=== PATIENT | female | born 1980 | race Caucasian/White ===

== ENCOUNTER 2016-08-12 16:17 | Inpatient (IN) | payer OTHER ==
[~2016-08-12] VITALS: Ht 152.4 cm; Wt 83.6 kg
[~2016-08-12 16:17] MED LIST: CARBOPROST 250 MCG INJ ONE; LABE200T3 PO; PNV1TABL50 PO
[2016-08-12 16:53] VITALS: Ht 152.4 cm; Wt 83.6 kg
[2016-08-12 16:55] VITALS: BP 191/86; RESP 20
[2016-08-12] MEDS ORDERED: LACTATED RINGER'S 1,000 ML IV SCH (16:59)
[2016-08-12] MEDS ORDERED: BUTORPHANOL 2 MG INJ IV PRN (17:00)
[2016-08-12] MEDS ORDERED: LIDOCAINE 1% (MPF) 30 ML INJ INJ PRN (17:00)
[2016-08-12] MEDS ORDERED: IBUPROFEN 600 MG TAB PO PRN (17:00)
[2016-08-12] MEDS ORDERED: METHYLERGONOVINE 0.2 MG INJ IM PRN (17:00)
[2016-08-12] MEDS ORDERED: ACETAMINOPHEN/CODEINE #3 TAB PO PRN (17:00)
[2016-08-12] MEDS ORDERED: OXYTOCIN 30 UNITS/LR 500 ML IV PRN (17:00)
[2016-08-12] MEDS ORDERED: MISOPROSTOL 200 MCG TAB PR PRN (17:00)
[2016-08-12] MEDS ORDERED: OXYTOCIN 30 UNITS/LR 500 ML IV SCH ×2 (17:00)
[2016-08-12] MEDS ORDERED: CARBOPROST 250 MCG INJ IM PRN (17:00)
[2016-08-12] MEDS: LACTATED RINGER'S 1,000 ML IV SCH (17:42)
[2016-08-12] MEDS ORDERED: LACTATED RINGER'S 1,000 ML IV PRN (18:00)
[2016-08-12 18:11] LABS: BASOPHILS % 0.5 % (0.0-2.0); EOSINOPHILS % 0.1 % (0.0-7.0); HEMATOCRIT 32.2 % (37.0-47.0); HEMOGLOBIN 10.8 g/dl (12.0-16.0); LYMPHOCYTES # 1.6 10^3/ul (0.8-2.9); LYMPHOCYTES % 21.6 % (15.0-51.0); MEAN CORPUSCULAR HEMOGLOBIN 26.4 pg (29.0-33.0); MEAN CORPUSCULAR HGB CONC 33.7 g/dl (32.0-37.0); MEAN CORPUSCULAR VOLUME 78.4 fl (82.0-101.0); MEAN PLATELET VOLUME 10.7 fl (7.4-10.4); MONOCYTE # 0.4 10^3/ul (0.3-0.9); MONOCYTES % 5.3 % (0.0-11.0); NEUTROPHIL # 5.3 10^3/ul (1.6-7.5); NEUTROPHILS % 72.5 % (39.0-77.0); PLATELET COUNT 189 10^3/UL (140-440); RED CELL DISTRIBUTION WIDTH 13.5 % (11.5-14.5); UNCORRECTED WBC 7.3 10^3/ul (4.8-10.8); WHITE BLOOD COUNT 7.3 10^3/ul (4.8-10.8)
[2016-08-12 18:14] LABS: CONDITION 1; LH ANALYZER COMMENTS 1
[2016-08-12 18:16] LABS: ALBUMIN 3.6 g/dl (3.3-4.9); CHLORIDE 106 mmol/L (97-110); SODIUM 140 mmol/L (135-144)
[2016-08-12 18:18] LABS: INR 0.9; PROTIME 12.1 Sec (12.2-14.2); PT RATIO 0.9
[2016-08-12 18:19] LABS: ALANINE AMINOTRANSFERASE 17 IU/L (13-69); ALBUMIN/GLOBULIN RATIO 0.94; ALKALINE PHOSPHATASE 167 IU/L (42-121); ANION GAP 15 (8-16); ASPARTATE AMINO TRANSFERASE 15 IU/L (15-46); BILIRUBIN,INDIRECT 0.3 mg/dl (0-1.1); BILIRUBIN,TOTAL 0.3 mg/dl (0.2-1.3); BLOOD UREA NITROGEN 9 mg/dl (7-20); CALCIUM 9.5 mg/dl (8.4-10.2); CARBON DIOXIDE 23 mmol/L (21-31); CREATININE 0.65 mg/dl (0.44-1.00); GLUCOSE 100 mg/dl (70-220); TOTAL PROTEIN 7.4 g/dl (6.1-8.1)
--- NOTE | 2016-08-12 18:32 | RADRPT ---
PROCEDURE: US OB. CLINICAL INDICATION: Positive test. Uncertain size and dates. TECHNIQUE: Multiple sonographic images of the uterus were obtained. The images were revi ewed on a PACS workstation. COMPARISON: No prior studies are available for comparison. FINDINGS: There is a single live intrauterine gestation. heart rate is 157 beats per minute. Measurements were made in order to determine age. The results are as follows: BPD = 9.09 cm. HC = 32.27 cm. AC = 33.76 cm. FL = 7.09 cm. Estimated weight is 3123 +/- 468 grams. LMP growth percentile is 34 %. Menstrual age by ultrasound dates is 36 weeks 6 days. The estimated date of delivery is 09/03/2016. Position is cephalic and placenta is anterior right grade II. There is no evidence for an abruption or placenta previa. IMPRESSION: 1. Single live intrauterine gestation of 36 weeks 6 days menstrual age by ultrasound dates. 2. The estimated date of delivery is 09/03/2016. RPTAT: QQ .Modesto Gill MD, Date Time Electronically viewed and signed by .Modesto Gill MD, on 08/12/2016 18:32 .R/
[2016-08-12 18:50] LABS: ADD UMIC YES; URINE BILIRUBIN (Dip) NEGATIVE (NEGATIVE); URINE BLOOD (Dip) TRACE (NEGATIVE); URINE COLOR LT. YELLOW (YELLOW); URINE GLUCOSE (Dip) NEGATIVE (NEGATIVE); URINE KETONES (Dip) NEGATIVE (NEGATIVE); URINE LEUKOCYTE ESTERASE (Dip) TRACE (NEGATIVE); URINE NITRITE (Dip) NEGATIVE (NEGATIVE); URINE TOTAL PROTEIN (Dip) NEGATIVE (NEGATIVE); URINE UROBILINOGEN (Dip) 1.0 E.U./dL (0.1-1.0)
[2016-08-12 19:20] LABS: BACTERIA,URINE RARE; SQUAMOUS EPITHELIAL CELL,UR FEW; URINE RBCS 0-2 /HPF (0)
[2016-08-12] MEDS ORDERED: MAGNESIUM SULFATE 4 GM/100 ML 100 ML IVPB ONE (20:00)
[2016-08-12] MEDS ORDERED: MAGNESIUM SULFATE 20 GM/500 ML 500 ML IV SCH (20:00)
[2016-08-12] MEDS ORDERED: DINOPROSTONE 10 MG VAG SUPP VAG ONE (20:30)
[2016-08-12] MEDS: LABETALOL HCL 20MG INJ IV PRN (21:13)
[2016-08-12] MEDS: MAGNESIUM SULFATE 20 GM/500 ML 500 ML IV SCH (21:32)
[2016-08-12] MEDS: LABETALOL 200 MG TAB PO SCH (22:03)
[2016-08-13] VITALS (12 sets, daily range): BP systolic 137–173; BP diastolic 65–77; PULSE 47–168; RESP 18–20
[2016-08-13] MEDS: LABETALOL HCL 20MG INJ IV PRN ×4 (00:09→04:17)
[2016-08-13] MEDS: LACTATED RINGER'S 1,000 ML IV SCH ×2 (01:28→09:00)
[2016-08-13] MEDS ORDERED: FENTAnyl 2MCG/ML-ROPIV 0.2% 100 ML ONE (05:09)
[2016-08-13] MEDS ORDERED: FENTAnyl 2MCG/ML-ROPIV 0.2% 100 ML BAG EPI SCH (05:30)
[2016-08-13] MEDS ORDERED: NALOXONE (0.4 MG/ML) INJ IV PRN ×2 (05:30→12:00)
[2016-08-13] MEDS: LABETALOL 200 MG TAB PO SCH (06:00)
[2016-08-13] MEDS: MAGNESIUM SULFATE 20 GM/500 ML 500 ML IV SCH ×2 (07:45→22:43)
[2016-08-13] MEDS ORDERED: CEFAZOLIN 2 GM/50 ML (PMX) 50 ML IVPB ONE (09:28)
[2016-08-13] MEDS ORDERED: ONDANSETRON 4 MG INJ IV STA (09:29)
[2016-08-13] MEDS ORDERED: CITRIC ACID/NA CITRATE 30 ML CUP ONE (09:30)
[2016-08-13] MEDS ORDERED: CEFAZOLIN 2 GM/50 ML (PMX) 50 ML IV SCH (09:30)
[2016-08-13] MEDS ORDERED: CITRIC ACID/NA CITRATE 30 ML CUP PO ONE (09:30)
[2016-08-13] MEDS ORDERED: ONDANSETRON 4 MG INJ ONE (09:31)
[2016-08-13] MEDS ORDERED: morphine SULFATE/PF (10 MG/10 ML) INJ ONE (10:56)
[2016-08-13] MEDS ORDERED: OXYTOCIN 10 UNIT INJ ONE (10:56)
[2016-08-13] MEDS ORDERED: METOCLOPRAMIDE 10 MG INJ ONE (10:56)
[2016-08-13] MEDS ORDERED: FENTAnyl 50 MCG/ML VIAL ONE (10:56)
[2016-08-13] MEDS ORDERED: PHENYLephrine (100 MCG/ML) 5ML SYG ONE (10:56)
[2016-08-13] MEDS ORDERED: EPHEDrine SULFATE 50 MG/5 ML SYG IV PRN (12:00)
[2016-08-13] MEDS ORDERED: ONDANSETRON 4 MG INJ IV PRN ×2 (12:00)
[2016-08-13] MEDS ORDERED: MIDAZOLAM 1 MG/ML 2 ML INJ IV PRN (12:00)
[2016-08-13] MEDS ORDERED: LABETALOL HCL 20MG INJ IV PRN (12:00)
[2016-08-13] MEDS ORDERED: FENTAnyl 50 MCG/ML VIAL IV PRN ×3 (12:00)
[2016-08-13] MEDS ORDERED: hydrALAzine 20 MG INJ IV PRN (12:00)
[2016-08-13] MEDS ORDERED: MEPERIDINE 25 MG INJ IV PRN (12:00)
[2016-08-13] MEDS ORDERED: ZOLPIDEM 5 MG TAB PO PRN (12:00)
[2016-08-13] MEDS ORDERED: TRIMETHOBENZAMIDE 100 MG/ML VIAL IM PRN (12:00)
[2016-08-13] MEDS ORDERED: morphine 2 MG INJ IV PRN ×2 (12:00)
[2016-08-13] MEDS ORDERED: DIPHENHYDRAMINE 50 MG INJ IV PRN ×2 (12:00)
[2016-08-13] MEDS ORDERED: HYDROmorphONE (0.2 MG/ML) 10ML SYG IV PRN ×3 (12:00)
--- NOTE | 2016-08-13 14:19 | HP ---
Date/Time of Note Date/Time of Note DATE: 08/13/16 TIME: 14:01 OB - History Hx of Present Free Text/Dictation 38 weeks 2 days female 36 years old 4 para 3 admitted to the hospital labor and delivery room for induction of labor due to - induced patient underwent a Cervidil induction responded well and her cervix dilated to complete 100% effacement vertex at -2 station during the second stage of labor in spite of of several hours of pushing presenting part did not descend any further, while baby having variable decelerations with contraction, returning to the baseline, after several hours of pushing patient declined further trial of labor in second stage of labor requested delivery , even though this was explained to the patient with some more pushing vaginal delivery can be achieved patient refused and requested therefore she is being prepared for the above surgery the complications of this procedure described to the patient including but not limited to bowel and bladder injury, possibility of wound infection , hematoma she fully understood the complications but still would like to proceed with the operation Estimated Due Date: Aug 24, 2016 : 4 Para: 3 Care: Limited Care Ultrasounds: Normal mid trimester US Obstetrical Complications: None Medical Complications: None Past Family/Social History * Past Medical, Surgical, Family and Obstetric Histories reviewed from chart. Rubella: immune RPR/VDRL: Negative GBS Status: Negative HBsAG: Negative OB Admission Exam Vital Signs Vital Signs Vital Signs Date Time Temp Pulse Resp B/P Pulse Ox O2 Delivery O2 Flow Rate FiO2 08/12/16 16:55 98.0 20 191/86 98 Room Air Physical Exam HEENT: WNL Heart: Rhythm Normal Lungs: Clear, Equal Abdomen: WNL Extremities: Normal Cervical Dilatation: None Effacement: 0% Membranes: Intact Heart Rate: 120's Accelerations: Accelerations Present Decelerations: Variable Decelerations Varibility: Moderate Contractions on Admission: None Intensity: Mild Last 72 hours Lab Results CBC & BMP 08/12/16 17:13 Liver Function Test 08/12/16 17:13 Alanine Aminotransferase (ALT/SGPT) 17 Albumin 3.6 Alkaline Phosphatase 167 H Aspartate Amino Transf (AST/SGOT) 15 Direct Bilirubin 0.00 Total Protein 7.4 Magnesium Level Test 08/13/16 07:30 Magnesium Level 5.8 *H CRISTINA ALFARO MD Aug 13, 2016 14:16
--- NOTE | 2016-08-13 14:50 | DELSUM ---
Delivery Summary A-C Datetime Report Generated by CPN: 08/13/2016 14:50 DELIVERY PERSONNEL Senior Data Warehouse Architect: Tamara Lloyd Religious Healer: freddy MATERNAL INFORMATION Delivery Anesthesia: Spinal Medications in Delivery: see anethesia records Estimated Blood Loss (ml): 650 Placenta Cultured: Yes Maternal Complications: Other Other Maternal Complications: severe high bp on labetalol and magnesium sulfate LABOR SUMMARY EDC: 08/24/2016 00:00 No. Babies in Womb: 1 Attempted: No Labor Anesthesia: Epidural LABOR INFORMATION Reason for Induction: Gest. HTN/PreEclam/Eclamp Cervical Ripening Agents: Cervidil Oxytocin: N/A Group B Beta Strep: Negative Antibiotics # of Doses: 1 Antibiotics Time of Last Dose: 1048 Steroids Given: None Reason Steroids Not Administered: Not Applicable MEMBRANES Membranes Rupture Method: Spontaneous Rupture of Membranes: 08/13/2016 06:18 Length of Rupture (hr): 5.05 Amniotic Fluid Color: Clear Amniotic Fluid Amount: Small Amniotic Fluid Odor: Normal STAGES OF LABOR Stage 3 hr: 0 Stage 3 min: 1 CSECTION DELIVERY Primary Indication: Failure of Descent Other Primary Indication: PT. declined to try out of labor Secondary Indication: Severe high bp Other Secondary Indication: multiple varible decels CSection Urgency: Emergency CSection Incidence: Primary Labor: Labor Elective: Nonelective CSection Incision: Lower Uterine Transverse BABY A INFORMATION Infant Delivery Date/Time: 08/13/2016 11:21 Method of Delivery: Born in Route : No : N/A Forceps: N/A Vacuum Extraction: N/A Shoulder Dystocia : No SHOULDER DYSTOCIA BABY A Delivery Date/Time: 08/13/2016 11:21 PRESENTATION/POSITION BABY A Presentation: Cephalic Cephalic Presentation: Vertex Vertex Position: Left Occipital Transverse Breech Presentation: N/A PLACENTA INFORMATION BABY A Placenta Delivery Time : 08/13/2016 11:22 Placenta Method of Delivery: Manual Removal Placenta Status: Delivered SCORES BABY A Heart Rate 1 min: >100 bpm Resp Effort 1 min: Good Cry Reflex Irritability 1 min: Cough/Sneeze/Pulls Away Muscle Tone 1 min: Active Motion Color 1 min: Blue/Pale Resuscitation Effort 1 min: Tactile Stimulation; Oxygen SCORE 1 MIN: 8 Heart Rate 5 min: >100 bpm Resp Effort 5 min: Good Cry Reflex Irritability 5 min: Cough/Sneeze/Pulls Away Muscle Tone 5 min: Active Motion Color 5 min: Blue/Pale SCORE 5 MIN: 8 INFANT INFORMATION BABY A Gestational Age at Delivery: 38.3 Gestational Status: Early Term- 37- 38.6 Weeks Outcome : Liveborn Infant Condition : Stable Sex: Female IDENTIFICATION/MEDS BABY A ID Band Number: [id number] ID Band Location: Right Leg; Left Arm Sensor Applied: Yes Sensor Number: [id number] WEIGHT/LENGTH BABY A Infant Birthweight (gm): 2990 Infant Weight (lb): 6 Weight (oz): 9 Length (in): 19.50 Length (cm): 49.53 CORD INFORMATION BABY A No. Cord Vessels: 3 Nuchal Cord : Around Neck x1, Loose Cord Blood Taken: Yes Infant Suction: Mouth; Nose ASSESSMENT BABY A Complications: Multiple Variable Decels Physical Findings at Delivery: Within Normal Limits Physical Findings- Other: void x1, stool x1 Respirations: Appears Normal Service Center Supervisor/ALS Called : No Infant Care By: rt/zac veras
--- NOTE | 2016-08-13 15:56 | OPR ---
DATE OF OPERATION: 08/13/2016 PREOPERATIVE DIAGNOSES: 1. Intrauterine at 38 weeks and 2 days. complicated with PIH (-induced hypertension. 2. Nonreassuring heart tracing, category 3. 3. Failure to descend at second stage of labor. 4. Declined further trial of labor at the second stage. POSTOPERATIVE DIAGNOSES: 1. Intrauterine at 38 weeks and 2 days. complicated with PIH (-induced hypertension. 2. Nonreassuring heart tracing, category 3. 3. Failure to descend at second stage of labor. 4. Declined further trial of labor at the second stage. OPERATION PERFORMED: Primary transverse low cervical section. SURGEON: Cristina Santos MD DEPUTY CLERK OF SUPERIOR COURT: Az Win MD ANESTHESIA: Spinal. ANESTHESIOLOGIST: Lior Garnados MD FINDINGS: Live baby girl, 8 and 8. Baby weighed 6 pounds 9 ounces. DETAILS OF THE PROCEDURE: Under satisfactory spinal anesthesia, the patient was prepped and draped and placed in supine position, tilted to the left. Pfannenstiel incision was made, carried through the subcutaneous tissue. Bleeders brought under control with electrocautery. Fascia incised to the length of incision. Rectus muscle divided in midline. Peritoneum exposed, entered through a transverse incision. Exploration of abdomen revealed a gravid uterus at term, normal appearing tubes and ovaries, and evidence of long labor. Bladder flap was developed. Transverse incision was made in the upper part of the lower segment of the uterus. Amniotic sac ruptured, scant amount of clear amniotic fluid noted. Live baby girl was delivered from engaged vertex with occiput posterior. Shoulder delivered without any difficulty and the rest of the body as well. Cord clamped after pulsation stopped ,nasal oropharyngeal suction was done on the baby, she was handed to the team for immediate attention. The patient received 20 units of Pitocin. Placenta delivered manually intact. Uterine cavity cleaned with wet sponge and drainage established. Uterus closed in 2 layers using Monocryl #1 in continuous fashion. Peritoneal cavity was irrigated with warm saline. Sponge, needle and instruments reported to be correct. Abdominal peritoneum closed with 2-0 chromic catgut continuously. Rectus muscle approximated with few interrupted 2-0 chromic catgut. Fascia closed with #1 PDS in a continuous fashion. Subcutaneous tissue approximated with 2-0 chromic catgut. The skin closed with fausto. Estimated blood loss 600 to 700 mL. Urine bag contained 200 mL of clear urine. The patient tolerated procedure well, transferred to recovery room in a good condition. Dictated By: CRISTINA MORALES/ROGER Conf#: [id number] DID#: [id number] MTDD
[2016-08-13] MEDS ORDERED: CEFAZOLIN 1 GM/50 ML (PMX) 50 ML IVPB SCH (16:00)
[2016-08-13] MEDS ORDERED: CARBOPROST 250 MCG INJ IM PRN (16:00)
[2016-08-13] MEDS ORDERED: LANOLIN 7 GM TUBE TOP PRN (16:00)
[2016-08-13] MEDS ORDERED: METHYLERGONOVINE 0.2 MG INJ IM PRN (16:00)
[2016-08-13] MEDS ORDERED: OXYTOCIN 30 UNITS/LR 500 ML IV PRN (16:00)
[2016-08-13] MEDS ORDERED: ACETAMINOPHEN/CODEINE #3 TAB PO PRN ×2 (16:00)
[2016-08-13] MEDS ORDERED: OXYCODONE/ACETAMINOPHEN (5/325) TAB PO PRN (16:00)
[2016-08-13] MEDS ORDERED: MISOPROSTOL 200 MCG TAB PR PRN (16:00)
[2016-08-13] MEDS: OXYTOCIN 30 UNITS/LR 500 ML IV SCH ×2 (16:14→20:41)
[2016-08-13] MEDS: KETOROLAC 30 MG INJ IV PRN ×2 (17:04→23:15)
[2016-08-13] MEDS ORDERED: IBUPROFEN 600 MG TAB PO SCH (18:00)
--- NOTE | 2016-08-13 20:46 | QN ---
Documentation Comment I was called by RN from post unit due to elevated blood pressure noted in the patient in the range of 150-170/80-90 Went to the bed side. Patient denied any headache or blurred vision. Reported epigastric pain about 5/10 ; Denies any RUQ pain BPs' reviewed and are in 150-170/90s GA: A&O, NAD Abdomen:Soft, appropriate tenderness over the Cesrean section incision noted Extremities: no calf tenderness, SCD's are on. + 1symetric Bilateral edema Assessment; S/p section for FTP with CHTN and superimposed preclampsia Magnesium stopped after delivery. Now elevated blood pressure in the severe range with epigastric pain. Consider restart the magnesium and continue until 24 hours post delivery Hydralazine 5 mg IV push to be given now, recheck after 20 mi if < 160/90 continue on Labetalol TID 100 mg as below PIH labs to be checked now Start on Labetaolol 100 mg PO TID Strict I&O. Routine post care CORETTA FOY MD Aug 13, 2016 20:46
[2016-08-13] MEDS ORDERED: ACETAMINOPHEN 500 MG TAB PO PRN (21:00)
[2016-08-13] MEDS ORDERED: MAGNESIUM SULFATE 2 GM/50 ML 50 ML IVPB SCH (21:00)
[2016-08-13] MEDS ORDERED: hydrALAzine 20 MG INJ IV ONE (21:00)
[2016-08-13] MEDS ORDERED: MAGNESIUM SULFATE 4 GM/100 ML 100 ML IVPB ONE (21:15)
[2016-08-13] MEDS: LABETALOL 100 MG TAB PO SCH (21:43)
[2016-08-13 21:47] LABS: ALBUMIN 2.4 g/dl (3.3-4.9)
[2016-08-13 21:48] LABS: POTASSIUM 4.2 mmol/L (3.5-5.1)
[2016-08-13 21:50] LABS: BILIRUBIN,INDIRECT 0.4 mg/dl (0-1.1); BILIRUBIN,TOTAL 0.4 mg/dl (0.2-1.3); CREATININE 0.93 mg/dl (0.44-1.00); PHOSPHORUS 5.2 mg/dl (2.5-4.9); TOTAL PROTEIN 5.2 g/dl (6.1-8.1)
[2016-08-13 21:51] LABS: CALCIUM 7.5 mg/dl (8.4-10.2)
[2016-08-13 22:32] LABS: FIBRIN SPLIT PRODUCT <10 ug/ml (<10)
[2016-08-14] VITALS (22 sets, daily range): BP systolic 104–162; BP diastolic 57–72; PULSE 58–75; RESP 16–19
[2016-08-14] MEDS: OXYTOCIN 30 UNITS/LR 500 ML IV SCH (02:00)
[2016-08-14] MEDS: KETOROLAC 30 MG INJ IV PRN (06:06)
[2016-08-14 07:26] LABS: HEMATOCRIT 20.7 % (37.0-47.0); HEMOGLOBIN 7.2 g/dl (12.0-16.0); LYMPHOCYTES % 8.9 % (15.0-51.0); MEAN CORPUSCULAR HGB CONC 34.6 g/dl (32.0-37.0); MEAN CORPUSCULAR VOLUME 78.1 fl (82.0-101.0); MEAN PLATELET VOLUME 9.8 fl (7.4-10.4); MONOCYTE # 0.5 10^3/ul (0.3-0.9); MONOCYTES % 4.6 % (0.0-11.0); NEUTROPHIL # 9.6 10^3/ul (1.6-7.5); NEUTROPHILS % 86.5 % (39.0-77.0); PLATELET COUNT 158 10^3/UL (140-440); RED BLOOD COUNT 2.65 10^6/ul (4.20-5.40); RED CELL DISTRIBUTION WIDTH 13.4 % (11.5-14.5); UNCORRECTED WBC 11.1 10^3/ul (4.8-10.8); WHITE BLOOD COUNT 11.1 10^3/ul (4.8-10.8)
[2016-08-14 07:37] LABS: CONDITION 1; LH ANALYZER COMMENTS 1
[2016-08-14] MEDS: SENNA/DOCUSATE NA (8.6MG/50MG) TAB PO SCH ×2 (08:44→20:33)
[2016-08-14] MEDS: LABETALOL 100 MG TAB PO SCH ×3 (08:45→20:34)
[2016-08-14] MEDS: MAGNESIUM SULFATE 20 GM/500 ML 500 ML IV SCH (08:49)
--- NOTE | 2016-08-14 14:02 | PN ---
Date/Time of Note Date/Time of Note DATE: 08/14/16 TIME: 14:00 OB Subjective Subjective Subjective Vital sign a stable blood pressures running within normal on 130s over 80s no headache no epigastric pain no blurry vision magnesium sulfate discontinued patient encouraged ambulation her hemoglobin is 7.2 if the static or lightheaded when active may require transfusion Laboratory Tests Test 08/13/16 21:22 08/14/16 06:15 08/14/16 11:28 Alanine Aminotransferase (ALT/SGPT) 25IU/L Albumin 2.4g/dl Alkaline Phosphatase 117IU/L Anion Gap 12 Aspartate Amino Transf (AST/SGOT) 27IU/L Blood Urea Nitrogen 9mg/dl Calcium Level 7.5mg/dl Carbon Dioxide Level 25mmol/L Chloride Level 99mmol/L Creatinine 0.93mg/dl Direct Bilirubin 0.00mg/dl Fibrinogen 310.0mg/dl Glucose Level 108mg/dl Indirect Bilirubin 0.4mg/dl Lactate Dehydrogenase 631IU/L Phosphorus Level 5.2mg/dl Plasma Fibrin Degradation Products <10ug/ml Potassium Level 4.2mmol/L Sodium Level 132mmol/L Total Bilirubin 0.4mg/dl Total Protein 5.2g/dl Basophils # 0.010^3/ul Basophils % 0.0% Blood Morphology Comment Eosinophils # 0.010^3/ul Eosinophils % 0.0% Hematocrit 20.7% Hemoglobin 7.2g/dl Lymphocytes # 1.010^3/ul Lymphocytes % 8.9% Magnesium Level 7.5mg/dl 7.1mg/dl Mean Corpuscular Hemoglobin 27.0pg Mean Corpuscular Hemoglobin Concent 34.6g/dl Mean Corpuscular Volume 78.1fl Mean Platelet Volume 9.8fl Monocytes # 0.510^3/ul Monocytes % 4.6% Neutrophils # 9.610^3/ul Neutrophils % 86.5% Nucleated Red Blood Cells # 0.010^3/ul Nucleated Red Blood Cells % 0.0/100WBC Platelet Count 81486^3/UL Red Blood Count 2.6510^6/ul Red Cell Distribution Width 13.4% White Blood Count 11.110^3/ul Current Medications Medications (Trade) Dose Ordered Sig/Yana Route PRN Reason Start Time Stop Time Status Last Admin Dose Admin Lactated Ringer's (Lr) 1,000 ml @ 125 mls/hr Q8H IV 08/12/16 16:59 Cancel Butorphanol Tartrate (Stadol) 2 mg Q2H PRN IV PAIN 08/12/16 17:00 08/13/16 16:02 DC Lidocaine 30 ml 30 ml ONCE PRN INJ EPISIOTOMY/TEARING 08/12/16 17:00 08/13/16 16:02 DC Oxytocin/Lactated Ringer's 500 ml @ 125 mls/hr ONCE -MAY REPEAT X1 IV 08/12/16 17:00 08/13/16 16:02 DC 08/13/16 13:29 Oxytocin/Lactated Ringer's 500 ml @ 125 mls/hr ONCE IV 08/12/16 17:00 08/13/16 16:02 DC Ibuprofen (Motrin) 600 mg ONCE PRN PO Mild Pain (Pain Score 1-3) 08/12/16 17:00 08/12/16 18:29 DC Acetaminophen/ Codeine Phosphate 2 tab 2 tab ONCE PRN PO Moderate to Severe Pain (4-10) 08/12/16 17:00 08/13/16 16:02 DC Lactated Ringer's 1,000 ml @ 2,000 mls/hr Q30M PRN IV PRE-EPIDURAL BOLUS 08/12/16 18:00 08/13/16 16:02 DC Oxytocin/Lactated Ringer's 500 ml @ 0 mls/hr ONCE PRN IV For Hemorrhage Management 08/12/16 17:00 08/13/16 16:02 DC Methylergonovine Maleate (Methergine) 0.2 mg ONCE PRN IM VAGINAL BLEEDING 08/12/16 17:00 08/13/16 16:03 DC Carboprost Tromethamine (Hemabate) 250 mcg ONCE PRN IM VAGINAL BLEEDING 08/12/16 17:00 08/13/16 16:03 DC Misoprostol (Cytotec) 1,000 mcg ONCE PRN AR VAGINAL BLEEDING 08/12/16 17:00 08/13/16 16:03 DC Labetalol HCl 200 mg 200 mg Q8 PO 08/12/16 22:00 08/13/16 16:03 DC 08/12/16 22:03 Lactated Ringer's (Lr) 1,000 ml @ 125 mls/hr Q8H IV 08/12/16 17:00 08/13/16 16:03 DC 08/13/16 09:00 Labetalol HCl 20 mg 20 mg ONCE PRN IV ELEVATED BLOOD PRESSURE 08/12/16 18:00 08/13/16 16:02 DC 08/13/16 04:17 Magnesium Sulfate 100 ml @ 200 mls/hr ONCE ONCE IVPB 08/12/16 20:00 08/12/16 20:29 DC 08/12/16 20:36 Magnesium Sulfate (Magnesium Sulfate 20 Gm/500 ml) 500 ml @ 50 mls/hr Q10H IV 08/12/16 20:00 08/12/16 20:38 DC Dinoprostone 10 mg 10 mg ONCE ONCE VAG 08/12/16 20:30 08/12/16 20:31 DC 08/12/16 20:54 Magnesium Sulfate 500 ml @ 50 mls/hr Q10H IV 08/12/16 21:30 08/13/16 16:02 DC 08/13/16 07:45 Fentanyl/ Ropivacaine 100 ml @ ud STK-MED ONCE .ROUTE 08/13/16 05:09 08/13/16 05:10 DC Naloxone HCl (Narcan) 0.2 mg Q2M PRN IV FOR RESP RATE 8 OR LESS 08/13/16 05:30 08/13/16 16:02 DC Fentanyl/ Ropivacaine 100 ml 100 ml EPIDURAL (PCEA) EPI 08/13/16 05:30 08/13/16 16:02 DC Cefazolin Sodium/ Dextrose 50 ml @ 100 mls/hr ONCE IV 08/13/16 09:30 08/13/16 16:02 DC Cefazolin Sodium/ Dextrose (Ancef 2 Gm/50 ml (Pmx)) 50 ml @ ud STK-MED ONCE IVPB 08/13/16 09:28 08/13/16 09:29 DC Citric Acid/ Sodium Citrate (Bicitra) 30 ml ONCE ONCE PO 08/13/16 09:30 08/13/16 09:31 DC 08/13/16 09:36 Ondansetron HCl (Zofran Inj) 4 mg ONCE STAT IV 08/13/16 09:29 08/13/16 09:31 DC 08/13/16 09:36 Citric Acid/ Sodium Citrate (Bicitra) 30 ml STK-MED ONCE .ROUTE 08/13/16 09:30 08/13/16 09:31 DC Ondansetron HCl (Zofran Inj) 4 mg STK-MED ONCE .ROUTE 08/13/16 09:31 08/13/16 09:32 DC Fentanyl (Sublimaze) 100 mcg STK-MED ONCE .ROUTE 08/13/16 10:56 08/13/16 10:57 DC Morphine Sulfate (Duramorph) 10 mg STK-MED ONCE .ROUTE 08/13/16 10:56 08/13/16 10:57 DC Metoclopramide HCl (Reglan) 10 mg STK-MED ONCE .ROUTE 08/13/16 10:56 08/13/16 10:57 DC Oxytocin (Oxytocin) 10 units STK-MED ONCE .ROUTE 08/13/16 10:56 08/13/16 10:57 DC Phenylephrine HCl (Edward-Synephrine Inj Syg) 500 mcg STK-MED ONCE .ROUTE 08/13/16 10:56 08/13/16 10:57 DC Hydromorphone HCl (Dilaudid (Rec)) 0.2 mg PACU ORDER PRN IV MILD PAIN LEVEL 1-3 08/13/16 12:00 08/13/16 16:02 DC Hydromorphone HCl (Dilaudid (Rec)) 0.4 mg PACU ORDER PRN IV MODERATE PAIN LEVEL 4-6 08/13/16 12:00 08/13/16 16:02 DC Hydromorphone HCl (Dilaudid (Rec)) 0.6 mg PACU ORDER PRN IV SEVERE PAIN LEVEL 7-10 08/13/16 12:00 08/13/16 16:02 DC Fentanyl (Sublimaze) 25 mcg PACU ORDER PRN IV MILD PAIN LEVEL 1-3 08/13/16 12:00 08/13/16 16:02 DC Fentanyl (Sublimaze) 50 mcg PACU ODER PRN IV MODERATE PAIN LEVEL 4-6 08/13/16 12:00 08/13/16 16:02 DC Fentanyl (Sublimaze) 75 mcg PACU ORDER PRN IV SEVERE PAIN LEVEL 7-10 08/13/16 12:00 08/13/16 16:02 DC Ondansetron HCl (Zofran Inj) 4 mg PACU ORDER PRN IV NAUSEA AND/OR VOMITING 08/13/16 12:00 08/13/16 16:02 DC Trimethobenzamide HCl (Tigan) 200 mg PACU ORDER PRN IM NAUSEA AND/OR VOMITING 08/13/16 12:00 08/13/16 16:02 DC Labetalol HCl (Labetalol) 5 mg PACU ORDER PRN IV HIGH BLOOD PRESSURE 08/13/16 12:00 08/13/16 16:02 DC Hydralazine HCl (Apresoline) 5 mg PACU ORDER PRN IV HIGH BLOOD PRESSURE 08/13/16 12:00 08/13/16 16:02 DC Ephedrine Sulfate 5 mg PACU ORDER PRN IV MAP LESS THAN 60 08/13/16 12:00 08/13/16 16:03 DC Meperidine HCl (Demerol) 25 mg PACU ORDER PRN IV POST-OP RIGORS 08/13/16 12:00 08/13/16 16:03 DC Diphenhydramine HCl (Benadryl) 25 mg PACU ORDER PRN IV PRURITUS 08/13/16 12:00 08/13/16 16:03 DC Midazolam HCl (Versed) 0.5 mg PACU ORDER PRN IV ANXIETY 08/13/16 12:00 08/13/16 16:03 DC Naloxone HCl (Narcan) 0.1 mg Q2M PRN IV FOR RESP RATE 8 OR LESS 08/13/16 12:00 08/14/16 11:59 DC Ketorolac Tromethamine (Toradol) 30 mg Q6H PRN IV PAIN 08/13/16 12:00 08/14/16 11:59 DC 08/14/16 06:06 Morphine Sulfate (morphine) 2 mg Q3H PRN IV PAIN LEVEL 1-5 08/13/16 12:00 08/14/16 11:59 DC Morphine Sulfate (morphine) 4 mg Q3H PRN IV PAIN LEVEL 6-10 08/13/16 12:00 08/14/16 11:59 DC Diphenhydramine HCl (Benadryl) 25 mg Q6H PRN IV ITCHING 08/13/16 12:00 08/14/16 11:59 DC Ondansetron HCl (Zofran Inj) 4 mg Q6H PRN IV NAUSEA AND/OR VOMITING 08/13/16 12:00 08/14/16 11:59 DC Zolpidem Tartrate (Ambien) 5 mg HS MAY REPEAT X 1 PRN PO INSOMNIA 08/13/16 12:00 08/14/16 11:59 DC Miscellaneous Information (* Miscellaneous Pharmacy Order) Duramorph: 0.2 mg Spi... GIVEN XX 08/13/16 12:00 08/13/16 16:03 DC Acetaminophen/ Codeine Phosphate (Tylenol No.3) 1 tab Q4H PRN PO PAIN LEVEL 4-6 08/13/16 16:00 Acetaminophen/ Codeine Phosphate (Tylenol No.3) 2 tab Q4H PRN PO PAIN LEVEL 7-10 08/13/16 16:00 Oxycodone/ Acetaminophen (Percocet (5/ 325)) 1 tab Q4H PRN PO PAIN LEVEL 4-6 08/13/16 16:00 Oxycodone/ Acetaminophen (Percocet (5/ 325)) 2 tab Q4H PRN PO PAIN LEVEL 7-10 08/13/16 16:00 Ibuprofen (Motrin) 600 mg Q6 PO 08/13/16 18:00 08/13/16 20:53 DC Simethicone (Mylicon) 160 mg Q8H PRN PO DISTENSION/GAS/BLOATING 08/13/16 16:00 Senna/Docusate Sodium (Senokot-S) 1 tab BID PO 08/14/16 09:00 08/14/16 08:44 Lanolin (Jag-U-Nqwavn) 1 applic BEDSIDE MEDICATION PRN TOP BEDSIDE FOR HECTOR TO NIPPLES 08/13/16 16:00 Diphtheria/ Tetanus/Acell Pertussis 0.5 ml 0.5 ml ONCE ONCE IM* 08/16/16 09:00 08/16/16 09:01 Oxytocin/Lactated Ringer's 500 ml @ 0 mls/hr ONCE PRN IV For Hemorrhage Management 08/13/16 16:00 Methylergonovine Maleate (Methergine) 0.2 mg ONCE PRN IM VAGINAL BLEEDING 08/13/16 16:00 Carboprost Tromethamine (Hemabate) 250 mcg ONCE PRN IM VAGINAL BLEEDING 08/13/16 16:00 Misoprostol 1000 mcg 1,000 mcg ONCE PRN AR VAGINAL BLEEDING 08/13/16 16:00 Cefazolin Sodium 50 ml @ 100 mls/hr ONCE IVPB 1/25/17 16:00 08/13/16 16:29 DC 08/13/16 16:14 Oxytocin/Lactated Ringer's 500 ml @ 125 mls/hr Q4H IV 08/13/16 15:55 08/14/16 03:54 DC 08/14/16 02:00 Hydralazine HCl (Apresoline) 5 mg ONCE ONCE IV 08/13/16 21:00 08/13/16 21:01 DC 08/13/16 21:31 Labetalol HCl 100 mg 100 mg TID PO 08/13/16 21:00 08/14/16 12:48 Magnesium Sulfate 100 ml @ 200 mls/hr ONCE ONCE IVPB 08/13/16 21:15 08/13/16 21:44 DC 08/13/16 22:12 Magnesium Sulfate (Magnesium Sulfate 2 Gm/50 ml) 50 ml @ 25 mls/hr Q2H IVPB 08/13/16 21:00 08/13/16 21:15 DC Acetaminophen 500 mg 500 mg Q6H PRN PO PAIN AND OR ELEVATED TEMP 08/13/16 21:00 Magnesium Sulfate (Magnesium Sulfate 20 Gm/500 ml) 500 ml @ 50 mls/hr Q10H IV 08/13/16 21:45 08/14/16 08:49 CRISTINA ALFARO MD Aug 14, 2016 14:02
--- NOTE | 2016-08-14 14:03 | PN ---
Date/Time of Note Date/Time of Note DATE: 08/14/16 TIME: 14:02 OB Subjective Subjective Subjective Vital sign is stable abdomen soft incision dry bowel sound present lochia normal urine output satisfactory ambulation recommended. CRISTINA ALFARO MD Aug 14, 2016 14:03
[2016-08-14] MEDS: OXYCODONE/ACETAMINOPHEN (5/325) TAB PO PRN (17:25)
[2016-08-15] VITALS (7 sets, daily range): BP systolic 119–158; BP diastolic 59–77; PULSE 54–70; RESP 16–20
[2016-08-15 07:41] LABS: BASOPHILS % 0.3 % (0.0-2.0); EOSINOPHILS % 0.3 % (0.0-7.0); HEMATOCRIT 24.4 % (37.0-47.0); HEMOGLOBIN 8.3 g/dl (12.0-16.0); LYMPHOCYTES # 1.2 10^3/ul (0.8-2.9); LYMPHOCYTES % 11.8 % (15.0-51.0); MEAN CORPUSCULAR HEMOGLOBIN 27.9 pg (29.0-33.0); MEAN CORPUSCULAR HGB CONC 34.1 g/dl (32.0-37.0); MEAN PLATELET VOLUME 9.9 fl (7.4-10.4); MONOCYTE # 0.6 10^3/ul (0.3-0.9); MONOCYTES % 6.5 % (0.0-11.0); NEUTROPHILS % 81.1 % (39.0-77.0); PLATELET COUNT 180 10^3/UL (140-440); RED BLOOD COUNT 2.98 10^6/ul (4.20-5.40); RED CELL DISTRIBUTION WIDTH 14.9 % (11.5-14.5); UNCORRECTED WBC 9.9 10^3/ul (4.8-10.8); WHITE BLOOD COUNT 9.9 10^3/ul (4.8-10.8)
[2016-08-15 07:54] LABS: CONDITION 1; LH ANALYZER COMMENTS 1
[2016-08-15] MEDS: SENNA/DOCUSATE NA (8.6MG/50MG) TAB PO SCH ×2 (08:39→20:29)
[2016-08-15] MEDS: LABETALOL 100 MG TAB PO SCH ×3 (08:40→20:28)
[2016-08-15] MEDS: OXYCODONE/ACETAMINOPHEN (5/325) TAB PO PRN (12:38)
--- NOTE | 2016-08-15 13:38 | PN ---
Date/Time of Note Date/Time of Note DATE: 08/15/16 TIME: 13:37 OB Subjective Subjective Subjective Post day 1, Vital sign stable, afebrile abdomen soft uterus firm lochia normal incision dry abdomen mildly distended bowel sounds present patient passing gas ambulation encouraged Laboratory Tests Test 08/15/16 06:30 Basophils # 0.010^3/ul Basophils % 0.3% Blood Morphology Comment Eosinophils # 0.010^3/ul Eosinophils % 0.3% Hematocrit 24.4% Hemoglobin 8.3g/dl Lymphocytes # 1.210^3/ul Lymphocytes % 11.8% Mean Corpuscular Hemoglobin 27.9pg Mean Corpuscular Hemoglobin Concent 34.1g/dl Mean Corpuscular Volume 82.0fl Mean Platelet Volume 9.9fl Monocytes # 0.610^3/ul Monocytes % 6.5% Neutrophils # 8.010^3/ul Neutrophils % 81.1% Nucleated Red Blood Cells # 0.010^3/ul Nucleated Red Blood Cells % 0.0/100WBC Platelet Count 62423^3/UL Red Blood Count 2.9810^6/ul Red Cell Distribution Width 14.9% White Blood Count 9.910^3/ul Current Medications Medications (Trade) Dose Ordered Sig/Yana Route PRN Reason Start Time Stop Time Status Last Admin Dose Admin Lactated Ringer's (Lr) 1,000 ml @ 125 mls/hr Q8H IV 08/12/16 16:59 Cancel Butorphanol Tartrate (Stadol) 2 mg Q2H PRN IV PAIN 08/12/16 17:00 08/13/16 16:02 DC Lidocaine 30 ml 30 ml ONCE PRN INJ EPISIOTOMY/TEARING 08/12/16 17:00 08/13/16 16:02 DC Oxytocin/Lactated Ringer's 500 ml @ 125 mls/hr ONCE -MAY REPEAT X1 IV 08/12/16 17:00 08/13/16 16:02 DC 08/13/16 13:29 Oxytocin/Lactated Ringer's 500 ml @ 125 mls/hr ONCE IV 08/12/16 17:00 08/13/16 16:02 DC Ibuprofen (Motrin) 600 mg ONCE PRN PO Mild Pain (Pain Score 1-3) 08/12/16 17:00 08/12/16 18:29 DC Acetaminophen/ Codeine Phosphate 2 tab 2 tab ONCE PRN PO Moderate to Severe Pain (4-10) 08/12/16 17:00 08/13/16 16:02 DC Lactated Ringer's 1,000 ml @ 2,000 mls/hr Q30M PRN IV PRE-EPIDURAL BOLUS 08/12/16 18:00 08/13/16 16:02 DC Oxytocin/Lactated Ringer's 500 ml @ 0 mls/hr ONCE PRN IV For Hemorrhage Management 08/12/16 17:00 08/13/16 16:02 DC Methylergonovine Maleate (Methergine) 0.2 mg ONCE PRN IM VAGINAL BLEEDING 08/12/16 17:00 08/13/16 16:03 DC Carboprost Tromethamine (Hemabate) 250 mcg ONCE PRN IM VAGINAL BLEEDING 08/12/16 17:00 08/13/16 16:03 DC Misoprostol (Cytotec) 1,000 mcg ONCE PRN MA VAGINAL BLEEDING 08/12/16 17:00 08/13/16 16:03 DC Labetalol HCl 200 mg 200 mg Q8 PO 08/12/16 22:00 08/13/16 16:03 DC 08/12/16 22:03 Lactated Ringer's (Lr) 1,000 ml @ 125 mls/hr Q8H IV 08/12/16 17:00 08/13/16 16:03 DC 08/13/16 09:00 Labetalol HCl 20 mg 20 mg ONCE PRN IV ELEVATED BLOOD PRESSURE 08/12/16 18:00 08/13/16 16:02 DC 08/13/16 04:17 Magnesium Sulfate 100 ml @ 200 mls/hr ONCE ONCE IVPB 08/12/16 20:00 08/12/16 20:29 DC 08/12/16 20:36 Magnesium Sulfate (Magnesium Sulfate 20 Gm/500 ml) 500 ml @ 50 mls/hr Q10H IV 08/12/16 20:00 08/12/16 20:38 DC Dinoprostone 10 mg 10 mg ONCE ONCE VAG 08/12/16 20:30 08/12/16 20:31 DC 08/12/16 20:54 Magnesium Sulfate 500 ml @ 50 mls/hr Q10H IV 08/12/16 21:30 08/13/16 16:02 DC 08/13/16 07:45 Fentanyl/ Ropivacaine 100 ml @ ud STK-MED ONCE .ROUTE 08/13/16 05:09 08/13/16 05:10 DC Naloxone HCl (Narcan) 0.2 mg Q2M PRN IV FOR RESP RATE 8 OR LESS 08/13/16 05:30 08/13/16 16:02 DC Fentanyl/ Ropivacaine 100 ml 100 ml EPIDURAL (PCEA) EPI 08/13/16 05:30 08/13/16 16:02 DC Cefazolin Sodium/ Dextrose 50 ml @ 100 mls/hr ONCE IV 08/13/16 09:30 08/13/16 16:02 DC Cefazolin Sodium/ Dextrose (Ancef 2 Gm/50 ml (Pmx)) 50 ml @ ud STK-MED ONCE IVPB 08/13/16 09:28 08/13/16 09:29 DC Citric Acid/ Sodium Citrate (Bicitra) 30 ml ONCE ONCE PO 08/13/16 09:30 08/13/16 09:31 DC 08/13/16 09:36 Ondansetron HCl (Zofran Inj) 4 mg ONCE STAT IV 08/13/16 09:29 08/13/16 09:31 DC 08/13/16 09:36 Citric Acid/ Sodium Citrate (Bicitra) 30 ml STK-MED ONCE .ROUTE 08/13/16 09:30 08/13/16 09:31 DC Ondansetron HCl (Zofran Inj) 4 mg STK-MED ONCE .ROUTE 08/13/16 09:31 08/13/16 09:32 DC Fentanyl (Sublimaze) 100 mcg STK-MED ONCE .ROUTE 08/13/16 10:56 08/13/16 10:57 DC Morphine Sulfate (Duramorph) 10 mg STK-MED ONCE .ROUTE 08/13/16 10:56 08/13/16 10:57 DC Metoclopramide HCl (Reglan) 10 mg STK-MED ONCE .ROUTE 08/13/16 10:56 08/13/16 10:57 DC Oxytocin (Oxytocin) 10 units STK-MED ONCE .ROUTE 08/13/16 10:56 08/13/16 10:57 DC Phenylephrine HCl (Edward-Synephrine Inj Syg) 500 mcg STK-MED ONCE .ROUTE 08/13/16 10:56 08/13/16 10:57 DC Hydromorphone HCl (Dilaudid (Rec)) 0.2 mg PACU ORDER PRN IV MILD PAIN LEVEL 1-3 08/13/16 12:00 08/13/16 16:02 DC Hydromorphone HCl (Dilaudid (Rec)) 0.4 mg PACU ORDER PRN IV MODERATE PAIN LEVEL 4-6 08/13/16 12:00 08/13/16 16:02 DC Hydromorphone HCl (Dilaudid (Rec)) 0.6 mg PACU ORDER PRN IV SEVERE PAIN LEVEL 7-10 08/13/16 12:00 08/13/16 16:02 DC Fentanyl (Sublimaze) 25 mcg PACU ORDER PRN IV MILD PAIN LEVEL 1-3 08/13/16 12:00 08/13/16 16:02 DC Fentanyl (Sublimaze) 50 mcg PACU ODER PRN IV MODERATE PAIN LEVEL 4-6 08/13/16 12:00 08/13/16 16:02 DC Fentanyl (Sublimaze) 75 mcg PACU ORDER PRN IV SEVERE PAIN LEVEL 7-10 08/13/16 12:00 08/13/16 16:02 DC Ondansetron HCl (Zofran Inj) 4 mg PACU ORDER PRN IV NAUSEA AND/OR VOMITING 08/13/16 12:00 08/13/16 16:02 DC Trimethobenzamide HCl (Tigan) 200 mg PACU ORDER PRN IM NAUSEA AND/OR VOMITING 08/13/16 12:00 08/13/16 16:02 DC Labetalol HCl (Labetalol) 5 mg PACU ORDER PRN IV HIGH BLOOD PRESSURE 08/13/16 12:00 08/13/16 16:02 DC Hydralazine HCl (Apresoline) 5 mg PACU ORDER PRN IV HIGH BLOOD PRESSURE 08/13/16 12:00 08/13/16 16:02 DC Ephedrine Sulfate 5 mg PACU ORDER PRN IV MAP LESS THAN 60 08/13/16 12:00 08/13/16 16:03 DC Meperidine HCl (Demerol) 25 mg PACU ORDER PRN IV POST-OP RIGORS 08/13/16 12:00 08/13/16 16:03 DC Diphenhydramine HCl (Benadryl) 25 mg PACU ORDER PRN IV PRURITUS 08/13/16 12:00 08/13/16 16:03 DC Midazolam HCl (Versed) 0.5 mg PACU ORDER PRN IV ANXIETY 08/13/16 12:00 08/13/16 16:03 DC Naloxone HCl (Narcan) 0.1 mg Q2M PRN IV FOR RESP RATE 8 OR LESS 08/13/16 12:00 08/14/16 11:59 DC Ketorolac Tromethamine (Toradol) 30 mg Q6H PRN IV PAIN 08/13/16 12:00 08/14/16 11:59 DC 08/14/16 06:06 Morphine Sulfate (morphine) 2 mg Q3H PRN IV PAIN LEVEL 1-5 08/13/16 12:00 08/14/16 11:59 DC Morphine Sulfate (morphine) 4 mg Q3H PRN IV PAIN LEVEL 6-10 08/13/16 12:00 08/14/16 11:59 DC Diphenhydramine HCl (Benadryl) 25 mg Q6H PRN IV ITCHING 08/13/16 12:00 08/14/16 11:59 DC Ondansetron HCl (Zofran Inj) 4 mg Q6H PRN IV NAUSEA AND/OR VOMITING 08/13/16 12:00 08/14/16 11:59 DC Zolpidem Tartrate (Ambien) 5 mg HS MAY REPEAT X 1 PRN PO INSOMNIA 08/13/16 12:00 08/14/16 11:59 DC Miscellaneous Information (* Miscellaneous Pharmacy Order) Duramorph: 0.2 mg Spi... GIVEN XX 08/13/16 12:00 08/13/16 16:03 DC Acetaminophen/ Codeine Phosphate (Tylenol No.3) 1 tab Q4H PRN PO PAIN LEVEL 4-6 08/13/16 16:00 Acetaminophen/ Codeine Phosphate (Tylenol No.3) 2 tab Q4H PRN PO PAIN LEVEL 7-10 08/13/16 16:00 Oxycodone/ Acetaminophen (Percocet (5/ 325)) 1 tab Q4H PRN PO PAIN LEVEL 4-6 08/13/16 16:00 Oxycodone/ Acetaminophen (Percocet (5/ 325)) 2 tab Q4H PRN PO PAIN LEVEL 7-10 08/13/16 16:00 08/15/16 12:38 Ibuprofen (Motrin) 600 mg Q6 PO 08/13/16 18:00 08/13/16 20:53 DC Simethicone (Mylicon) 160 mg Q8H PRN PO DISTENSION/GAS/BLOATING 08/13/16 16:00 Senna/Docusate Sodium (Senokot-S) 1 tab BID PO 08/14/16 09:00 08/15/16 08:39 Lanolin (Hvl-E-Goiiim) 1 applic BEDSIDE MEDICATION PRN TOP BEDSIDE FOR HECTOR TO NIPPLES 08/13/16 16:00 Diphtheria/ Tetanus/Acell Pertussis 0.5 ml 0.5 ml ONCE ONCE IM* 08/16/16 09:00 08/16/16 09:01 Oxytocin/Lactated Ringer's 500 ml @ 0 mls/hr ONCE PRN IV For Hemorrhage Management 08/13/16 16:00 Methylergonovine Maleate (Methergine) 0.2 mg ONCE PRN IM VAGINAL BLEEDING 08/13/16 16:00 Carboprost Tromethamine (Hemabate) 250 mcg ONCE PRN IM VAGINAL BLEEDING 08/13/16 16:00 Misoprostol 1000 mcg 1,000 mcg ONCE PRN MA VAGINAL BLEEDING 08/13/16 16:00 Cefazolin Sodium 50 ml @ 100 mls/hr ONCE IVPB 08/13/16 16:00 08/13/16 16:29 DC 08/13/16 16:14 Oxytocin/Lactated Ringer's 500 ml @ 125 mls/hr Q4H IV 08/13/16 15:55 08/14/16 03:54 DC 08/14/16 02:00 Hydralazine HCl (Apresoline) 5 mg ONCE ONCE IV 08/13/16 21:00 08/13/16 21:01 DC 08/13/16 21:31 Labetalol HCl 100 mg 100 mg TID PO 08/13/16 21:00 08/15/16 12:36 Magnesium Sulfate 100 ml @ 200 mls/hr ONCE ONCE IVPB 08/13/16 21:15 08/13/16 21:44 DC 08/13/16 22:12 Magnesium Sulfate (Magnesium Sulfate 2 Gm/50 ml) 50 ml @ 25 mls/hr Q2H IVPB 08/13/16 21:00 08/13/16 21:15 DC Acetaminophen 500 mg 500 mg Q6H PRN PO PAIN AND OR ELEVATED TEMP 08/13/16 21:00 Magnesium Sulfate (Magnesium Sulfate 20 Gm/500 ml) 500 ml @ 50 mls/hr Q10H IV 08/13/16 21:45 08/14/16 17:28 DC 08/14/16 08:49 Carboprost Tromethamine (Hemabate) 250 mcg STK-MED ONCE .ROUTE 08/12/16 07:00 08/14/16 18:28 CRISTINA MAGANA MD Aug 15, 2016 13:38
[2016-08-16 04:22] VITALS: BP 147/69; PULSE 57; RESP 18
[2016-08-16 08:20] VITALS: BP 149/69; PULSE 51; RESP 19
[2016-08-16] MEDS: SENNA/DOCUSATE NA (8.6MG/50MG) TAB PO SCH (08:51)
[2016-08-16] MEDS: LABETALOL 100 MG TAB PO SCH ×2 (08:52→13:00)
[2016-08-16] MEDS ORDERED: DIPHTH/TET/ACEL PERTUSS (ADULT) 0.5 ML VIAL IM* ONE (09:00)
--- NOTE | 2016-08-16 11:40 | DS ---
Date/Time of Note Date/Time of Note DATE: 08/16/16 TIME: 11:36 Obstetrical Discharge Record Final Diagnosis Final Diagnosis: Term delivered Section Section: Primary Complications Preg induced Hypertension Condition on Discharge Physical Assessment Last Vitals: Vital sign stable blood pressure running in 140s over 60s while on labetalol 200 mg twice a day, abdomen soft uterus firm lochia normal incision dry no complain of headache blurry vision or epigastric pain not feeling lightheaded with the hemoglobin of8.1 discharged home with a prescription of vitamins iron supplement labetalol 100 mg twice daily appointment to the office to DC a stable in 4 days Voiding: Yes Breast: Filling Fundus: Firm Episiotomy: Clean and dry Calf Tenderness: No Patient Condition: Good CRISTINA ALFARO MD Aug 16, 2016 11:40
[2016-08-16 12:00] VITALS: BP 134/78; PULSE 58; RESP 19
== END 2016-08-16 13:40 | disposition home or self-care (01) | DRG 766 ==
LOC: L-D 16:17 → PP1 08-13 15:51
PROVIDERS: ADMIT Obstetrics & Gynecology; ATTEND Obstetrics & Gynecology
PROC: 10D00Z1 Extraction of Products of Conception, Low, Open Approach (ICD-10-PCS; principal; 2016-08-13 11:00)
DX: O13.4 Gestational [pregnancy-induced] hypertension without significant proteinuria, complicating childbirth (principal); O32.4XX0 Maternal care for high head at term, not applicable or unspecified; O76 Abnormality in fetal heart rate and rhythm complicating labor and delivery; Z3A.38 38 weeks gestation of pregnancy; Z37.0 Single live birth
CPT/HCPCS: 36430; 62319; 76815; 80053; 80069; 80076; 81001; 81003; 83615; 83735; 84560; 85025; 85362; 85384; 85610; 85730; 86592; 86850; 86900; 86901; 86920; 87340; 88307; 90715; 94760; 99464; J0360; J0690; J1885; J2274; J2370; J2405; J2590; J2765; J3010; J3475; J7120; P9016